=== PATIENT | male | born 1995 | race African-American/Black ===

== ENCOUNTER 2022-11-27 01:48 | Inpatient (IN) | payer BC ==
[~2022-11-27] VITALS: Ht 180.3 cm; Wt 144.2 kg
[2022-11-27 05:00] VITALS: BP 130/51
[2022-11-27 06:13] LABS: EOSINOPHILS % (AUTO) 0.1 % (0.0-6.0); HEMATOCRIT 39 % (39-51); HEMOGLOBIN 12.2 g/dL (13.5-17.5); LYMPHOCYTES # (AUTO) 0.5 K/uL (0.8-4.8); LYMPHOCYTES % (AUTO) 4.5 % (20.0-44.0); MEAN CORPUSCULAR HGB CONC 31 g/dl (31.0-36.0); MEAN CORPUSCULAR VOLUME 74 fL (80-96); MONOCYTES # (AUTO) 0.1 K/uL (0.1-1.30); MONOCYTES % (AUTO) 0.9 % (2.0-12.0); NEUTROPHILS # (AUTO) 10.6 K/uL (1.8-8.9); NEUTROPHILS % (AUTO) 94.5 % (43.0-81.0); PLATELET COUNT (AUTO) 265 K/uL (150-450); RED BLOOD CELL COUNT(AUTO) 5.29 MIL/uL (4.5-6.0); WHITE BLOOD COUNT (AUTO) 11.3 K/uL (4.3-11.0)
[2022-11-27 06:36] LABS: CALCIUM, SERUM 8.6 mg/dL (8.5-10.1); CARBON DIOXIDE 25 mmol/L (21-32); CHLORIDE 105 mmol/L (98-107); CREATININE 1.2 mg/dL (0.6-1.3); GLUCOSE 158 mg/dL (74-106); MAGNESIUM 1.9 mg/dL (1.8-2.4); PHOSPHORUS 4.5 mg/dL (2.5-4.9); POTASSIUM 4.1 mmol/L (3.5-5.1); SODIUM SERUM 139 mmol/L (136-145); UREA NITROGEN, BLOOD 12 mg/dL (7-18)
[2022-11-27 06:40] LABS: IRON, SERUM 16 ug/dl (50-175); TOTAL IRON BINDING CAPACITY 301 ug/dl (250-450)
[2022-11-27 06:50] VITALS: BP 130/51
[2022-11-27] MEDS ORDERED: DOCUSATE SODIUM 100 MG CAPSULE PO PRN (07:30)
[2022-11-27] MEDS ORDERED: ALBUTEROL FS 2.5 MG/0.5 ML VIAL.NEB NEB PRN (07:30)
[2022-11-27] MEDS ORDERED: MAGNESIUM HYDROXIDE 30 ML UDC PO PRN (07:30)
[2022-11-27] MEDS ORDERED: ONDANSETRON HCL/PF 4 MG/2 ML VIAL IV PRN (07:30)
[2022-11-27] MEDS ORDERED: ACETAMINOPHEN 325 MG TABLET PO PRN (07:30)
[2022-11-27] MEDS: IPRATROPIUM NEB FS 0.5 MG/2.5 ML AMPUL.NEB NEB SCH ×5 (07:35→23:30)
[2022-11-27 08:00] VITALS: BP 140/64
[2022-11-27] MEDS: hydrALAZINE HCL 25 MG TABLET PO SCH ×2 (09:02→16:40)
[2022-11-27] MEDS: CEFTRIAXONE 1 G in IV D5W 50 ML IV SCH (09:03)
[2022-11-27] MEDS: ZITHROMAX 500 MG/250 ML D5W IV SCH ×2 (09:03)
[2022-11-27 09:57] LABS: BILIRUBIN,DIRECT 0.1 mg/dL (0.0-0.2); BILIRUBIN,TOTAL 0.3 mg/dL (0.2-1.0)
[2022-11-27 12:00] VITALS: BP 131/67
[2022-11-27] MEDS: IV NS 0.9% 1,000 ML IV PRN (12:18)
[2022-11-27] MEDS ORDERED: methylPREDNISolone SOD SUCC 40 MG/ML VIAL IV SCH ×2 (13:00→21:00)
[2022-11-27 15:32] LABS: BILIRUBIN,URINE NEGATIVE (NEGATIVE); COLOR,URINE YELLOW (YELLOW); LEUKOCYTE ESTERASE ,URINE NEGATIVE (NEGATIVE); NITRITE, URINE NEGATIVE (NEGATIVE); PROTEIN,URINE NEGATIVE (NEGATIVE); UGLUCOSE NEGATIVE (NEGATIVE); UROBILINOGEN,URINE 0.2 EU/dL (0.2)
[2022-11-27 16:00] VITALS: BP 143/55
[2022-11-27] MEDS: BUDESONIDE RESPULE INH 0.5 MG/2 ML AMPUL.NEB NEB SCH (16:18)
[2022-11-27] MEDS: FERROUS SULFATE (325 MG) 325 MG/TAB TABLET PO SCH (16:39)
[2022-11-27] MEDS: SOD FERRIC GLUC 125 MG in IV NS 0.9% 100 ML IV SCH (17:01)
[2022-11-27 20:00] VITALS: BP 148/80
[2022-11-28] VITALS: BP 147/72
[2022-11-28] MEDS: IPRATROPIUM NEB FS 0.5 MG/2.5 ML AMPUL.NEB NEB SCH ×6 (02:37→23:45)
[2022-11-28 04:00] VITALS: BP 98/59
[2022-11-28] MEDS ORDERED: methylPREDNISolone SOD SUCC 40 MG/ML VIAL IV SCH ×2 (05:00→22:30)
[2022-11-28] MEDS ORDERED: methylPREDNISolone SOD SUCC 40 MG/ML VIAL IV ONE (05:00)
[2022-11-28 05:57] LABS: HEMATOCRIT 39 % (39-51); HEMOGLOBIN 12.3 g/dL (13.5-17.5); LYMPHOCYTES # (AUTO) 1.1 K/uL (0.8-4.8); LYMPHOCYTES % (AUTO) 7.6 % (20.0-44.0); MEAN CORPUSCULAR HGB CONC 31 g/dl (31.0-36.0); MEAN CORPUSCULAR VOLUME 74 fL (80-96); MONOCYTES # (AUTO) 0.5 K/uL (0.1-1.30); MONOCYTES % (AUTO) 3.5 % (2.0-12.0); NEUTROPHILS # (AUTO) 12.4 K/uL (1.8-8.9); NEUTROPHILS % (AUTO) 88.9 % (43.0-81.0); PLATELET COUNT (AUTO) 289 K/uL (150-450)
[2022-11-28] MEDS: methylPREDNISolone SOD SUCC 40 MG/ML VIAL IV SCH ×3 (06:00→20:35)
[2022-11-28 06:20] LABS: CALCIUM, SERUM 9.1 mg/dL (8.5-10.1); CREATININE 1.1 mg/dL (0.6-1.3); MAGNESIUM 2.2 mg/dL (1.8-2.4); PHOSPHORUS 2.6 mg/dL (2.5-4.9); POTASSIUM 4.2 mmol/L (3.5-5.1)
[2022-11-28] MEDS: BUDESONIDE RESPULE INH 0.5 MG/2 ML AMPUL.NEB NEB SCH ×2 (07:59→14:57)
[2022-11-28 08:00] VITALS: BP 130/54
[2022-11-28] MEDS: ZITHROMAX 500 MG/250 ML D5W IV SCH ×2 (08:22)
[2022-11-28] MEDS: CEFTRIAXONE 1 G in IV D5W 50 ML IV SCH (08:22)
[2022-11-28] MEDS: FERROUS SULFATE (325 MG) 325 MG/TAB TABLET PO SCH ×2 (08:51→17:06)
[2022-11-28] MEDS: hydrALAZINE HCL 25 MG TABLET PO SCH ×2 (08:51→17:07)
[2022-11-28] MEDS: SOD FERRIC GLUC 125 MG in IV NS 0.9% 100 ML IV SCH (14:01)
[2022-11-28 16:00] VITALS: BP 127/46
[2022-11-28 20:00] VITALS: BP 122/60
[2022-11-28] MEDS ORDERED: ALBU2.5V13 NEB (21:56)
[2022-11-28] MEDS ORDERED: AZIT500T4 PO (21:56)
[2022-11-28] MEDS ORDERED: BUDE0.5A NEB (21:57)
[2022-11-28] MEDS ORDERED: DOCU100C36 PO (21:57)
[2022-11-28] MEDS ORDERED: IPRA0.2S9 NEB (21:57)
[2022-11-28] MEDS ORDERED: METH4TAB3 PO ×3 (21:57)
[2022-11-28] MEDS ORDERED: FERR325T28 PO (21:57)
[2022-11-28] MEDS ORDERED: HYDR-4076 PO (21:57)
[2022-11-28] MEDS ORDERED: AMOX500C2 PO (22:01)
[2022-11-29] VITALS: BP 136/77
[2022-11-29] MEDS: IV NS 0.9% 1,000 ML IV PRN (03:33)
[2022-11-29 04:00] VITALS: BP 142/61
[2022-11-29] MEDS: IPRATROPIUM NEB FS 0.5 MG/2.5 ML AMPUL.NEB NEB SCH ×4 (04:06→15:30)
[2022-11-29 07:00] VITALS: BP 138/85
[2022-11-29 07:12] LABS: HEMATOCRIT 38 % (39-51); HEMOGLOBIN 11.8 g/dL (13.5-17.5); LYMPHOCYTES # (AUTO) 1.5 K/uL (0.8-4.8); MEAN CORPUSCULAR HGB CONC 31 g/dl (31.0-36.0); MEAN CORPUSCULAR VOLUME 74 fL (80-96); MONOCYTES # (AUTO) 0.5 K/uL (0.1-1.30); MONOCYTES % (AUTO) 3.8 % (2.0-12.0); NEUTROPHILS # (AUTO) 12.6 K/uL (1.8-8.9); NEUTROPHILS % (AUTO) 86.2 % (43.0-81.0); PLATELET COUNT (AUTO) 287 K/uL (150-450); RED BLOOD CELL COUNT(AUTO) 5.13 MIL/uL (4.5-6.0); WHITE BLOOD COUNT (AUTO) 14.6 K/uL (4.3-11.0)
[2022-11-29 07:35] LABS: CALCIUM, SERUM 8.7 mg/dL (8.5-10.1); CREATININE 0.9 mg/dL (0.6-1.3); MAGNESIUM 2.3 mg/dL (1.8-2.4); PHOSPHORUS 4.3 mg/dL (2.5-4.9); POTASSIUM 4.2 mmol/L (3.5-5.1)
[2022-11-29] MEDS: CEFTRIAXONE 1 G in IV D5W 50 ML IV SCH (07:53)
[2022-11-29] MEDS: BUDESONIDE RESPULE INH 0.5 MG/2 ML AMPUL.NEB NEB SCH ×2 (08:32→17:00)
[2022-11-29] MEDS: ZITHROMAX 500 MG/250 ML D5W IV SCH ×2 (08:34)
[2022-11-29] MEDS: FERROUS SULFATE (325 MG) 325 MG/TAB TABLET PO SCH ×2 (08:50→17:38)
[2022-11-29] MEDS: hydrALAZINE HCL 25 MG TABLET PO SCH ×2 (08:52→17:37)
[2022-11-29] MEDS: SOD FERRIC GLUC 125 MG in IV NS 0.9% 100 ML IV SCH (13:52)
[2022-11-29 16:00] VITALS: BP 131/59
[2022-11-29 17:37] VITALS: BP 131/59
== END 2022-11-29 18:30 | disposition home or self-care (01) | DRG 202 ==
LOC: MED 04:44 → TELE 04:50
PROVIDERS: ADMIT Internal Medicine; ATTEND Internal Medicine
DX: J20.8 Acute bronchitis due to other specified organisms (principal); J45.901 Unspecified asthma with (acute) exacerbation; I10 Essential (primary) hypertension; Z79.51 Long term (current) use of inhaled steroids; Z79.899 Other long term (current) drug therapy; I16.0 Hypertensive urgency; R09.02 Hypoxemia; D50.9 Iron deficiency anemia, unspecified
CPT/HCPCS: 36415; 71045-TC; 80048-TC; 82247-TC; 82248-TC; 83540-TC; 83605-TC; 83735-TC; 84100-TC; 84484-TC; 85025-TC; 87040-TC; 87081-TC; 87086-TC; 94799-TC; G0378; J0456; J0696; J2916; J2920; J7030; J7060